=== PATIENT | male | born 1965 | race Caucasian/White ===

== ENCOUNTER → 2024-11-30 | Outpatient (CLI) | payer MEDICAID, SELFPAY ==
--- NOTE | 2024-11-30 09:20 | XR_ITS ---
Examination: Lumbar spine, 5 views Technique: Lumbar spine AP, lateral, coned lateral lower lumbar spine, bilateral obliques 5 views Exam date and time: November 30, 2024 1009 hours Comparison January 09, 2010 INDICATIONS: Low back pain years, history back surgery 2007 FINDINGS: Moderate osteopenia Lumbar dextroscoliosis 12 degrees Moderate narrowing left hip joint Diffuse moderate to advanced facet arthropathy Laminectomy L5 Advanced degenerative disc disease L4-L5 moderate degenerative disc disease L5-S1 No spondylolisthesis IMPRESSION: Advanced degenerative disc disease L4-L5 with significant spinal stenosis
== END | disposition home or self-care (01) ==
LOC: CDIM 09:06
PROVIDERS: PCP Nurse Practitioner Family; Referring Provider Nurse Practitioner Family; Visit Provider Nurse Practitioner Family
DX: M51.369 Other intervertebral disc degeneration, lumbar region without mention of lumbar back pain or lower extremity pain (principal); M48.061 Spinal stenosis, lumbar region without neurogenic claudication
CPT/HCPCS: 72110